=== PATIENT | female | born 1970 | race Caucasian/White ===

== ENCOUNTER 2019-08-07 10:57 | Emergency (ER) | payer OTHER, SELFPAY ==
[2019-08-07 10:58] VITALS: BP 157/93; PULSE 71; RESP 17; TEMP 36.7; O2SAT 97; BMI 32.9
--- NOTE | 2019-08-07 11:08 | ECG_ITS ---
Measurements Intervals [place] Rate: 70 P: 52 SD: 168 QRS: 55 QRSD: 80 T: 46 QT: 380 QTc: 410 SINUS RHYTHM Compared to ECG 02/27/2018 11:19:27 T-wave abnormality no longer present Electronically Signed On 08-07-2019 13:18:25 [employer]ORER [employer]ED CONCRETE by Samra Parks M.D. [email or web address]
--- NOTE | 2019-08-07 12:15 | XR_ITS ---
WS: [id number] XR chest 1V portable [id number] REASON FOR EXAM: sob FINDINGS: Comparison: Exam February 27, 2018 The heart and mediastinal interfaces are normal. The lung quinn are adequately aerated no pneumonia, pleural effusion, pulmonary edema, or pleural ef fusion. The hilum and apices are normal. No osseous abnormalities. XR/XR chest 1V portable [id number] IMPRESSION: Negative chest for active pathology.
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
--- NOTE | 2019-08-07 12:22 | W.ED.GENADLT ---
HPI - General Adult General: Chief complaint: Shortness of Breath/Dyspnea Stated complaint: left arm pain/short of breath Time Seen by Provider: 08/07/19 12:15 History of Present Illness: HPI narrative: Patient complains about left arm pain started today he did wake up with a migraine took her migraine medication headache is gone now said that her left hand seems swelled said it hurt for for several hours she put her arm behind her back and that seemed to make her arm pain go she denies any injury she does a lot of typing down at the [facility] denies any shortness of breath or chest pain presently Gosia history of cardiac disease MD complaint: Left arm pain Onset (ago): hour(s) Location: upper extremity Radiation: non-radiation Severity: mild Severity scale (1-10): 5 Quality: aching Pain Consistency: now resolved Relieving factors: movement and rest Exacerbating factors: movement Associated symptoms: Reports no associated symptoms; Deny chest pain, dyspnea, headache(s), nausea, rash or vomiting Review of Systems Narrative: Left arm pain started this morning did get relief when moving her arm behind the back. 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 Const: Denies: fever, chills or body aches Eyes: Denies: change in vision or blurry vision ENMT: Denies: throat pain or nasal congestion Card: Denies: chest pain or shortness of breath on exertion Resp: Denies: shortness of breath, productive cough or non-productive cough GI: Denies: abdominal pain, nausea or vomiting Musc: Denies: extremity pain Skin/Breast: Denies: rash Neuro: Denies: headache Psych: Denies: anxiety or depression Andrew/Lymph: Denies: easy bruising PFS ED PFSH: Social History Smoking and tobacco status: former smoker Physical Exam Const: COMMON NORMALS: no apparent distress, average body habitus and oriented x3 HENMT: COMMON NORMALS: normocephalic HEAD & SCALP: normal to inspection and normocephalic FACE & SINUS: normal facial exam Eye: COMMON NORMALS: conjunctivae normal GENERAL EYE: normal appearance of both eyes CONJUNCTIVA: Yes conjunctivae normal Neck/C-Spine: COMMON NORMALS: no JVD Chest: COMMONS NORMALS: inspection of chest normal Resp: COMMON NORMALS: normal respiratory effort and clear to auscultation bilaterally AUSCULTATION: clear to auscultation bilaterally Cardio: COMMON NORMALS: no JVD, regular rate and regular rhythm RATE: regular rate RHYTHM: regular rhythm GI: COMMON NORMALS: normal to inspection, nondistended, normoactive bowel sounds Extremity: COMMON NORMALS: normal to inspection and full ROM OTHER: I did not not notice any extremity swelling patient has good range of motion the arm no increased pain with movement good pulses good cap refill Neuro: COMMON NORMALS: oriented x3 Course Vital Signs: Vital signs: Vital Signs Temperature 98.0 F 08/07/19 10:58 Pulse Rate 71 08/07/19 10:58 Respiratory Rate 17 08/07/19 10:58 Blood Pressure 157/93 08/07/19 10:58 Pulse Oximetry 97 08/07/19 10:58 [facility] - General Adult EKG Data^: EKG 1: EKG interpretation date: 08/07/19 EKG interpretation time: 12:00 Interpretation: NSR, bpm 70bpm, pr 168ms, qrs 80ms Discharge Plan Discharge Prescriptions: No Action gabapentin 100 mg capsule 100 mg PO TID Qty: 90 RF: 1 topiramate 100 mg tablet 100 mg PO BID Qty: 60 RF: 1 sumatriptan succinate [Imitrex] 100 mg tablet 100 mg PO ONCE PRN (Reason: migraine headache) Qty: 9 RF: 1 diclofenac sodium 75 mg tablet,delayed release (DR/EC) 75 mg PO BID Qty: 60 RF: 0 Coding Level of Care Code ED Automobile Radio Repairer for Chg Fwd Exam Comprehensive
[2019-08-07 12:25] LABS: Troponin(5th) Baseline 6 ng/mL (0-10)
[2019-08-07 12:33] VITALS: O2SAT 99
[2019-08-07 12:40] LABS: Basophils # 0.1 10^3/uL (0.0-0.1); Basophils % 0.6 %; Eosinophils % 0.2 %; Hematocrit 42.9 % (37.0-47.0); Lymphocytes # 1.8 10^3/uL (0.8-4.8); Lymphocytes % 21.2 %; Mean Corpuscular HGB Conc 32.6 g/dL (30.0-36.0); Mean Corpuscular Hemoglobin 30.1 pg (28.0-34.0); Mean Corpuscular Volume 92.3 fL (81-99); Mean Platelet Volume 9.5 fL (7.4-10.4); Monocytes # 0.4 10^3/uL (0.2-0.9); Monocytes % 5.2 %; Neutrophils # 6.1 10^3/uL (1.8-7.7); Neutrophils % 72.7 %; Nucleated Red Blood Cells % 0 %; Platelet Count 330 10^3/cmm (130-400); Red Blood Count 4.65 10^6/uL (4.1-5.3); White Blood Count 8.4 10^3/uL (4.0-10.0)
[2019-08-07 12:54] LABS: Alanine Aminotransferase 62 U/L (0-33); Albumin Level 4.8 g/dL (3.5-5.2); Alkaline Phosphatase 69 IU/L (35-105); Anion Gap 20.4 (5-19); Aspartate Amino Transferase 31 U/L (0-32); Blood Urea Nitrogen 24 mg/dL (6-20); Calcium 10.7 mg/dL (8.5-10.5); Carbon Dioxide 19 mmol/L (22-29); Chloride 104 mmol/L (98-107); Globulin 2.5 g/dL (1.3-4.6); Glomerular Filtration Rate 44.1 mL/min (90-130); Glucose 101 mg/dL (65-115); Potassium 4.36; Sodium 139 mmol/L (136-145); Total Bilirubin 0.3 mg/dL (0.15-1.2); Total Protein 7.3 g/dL (6.6-8.7)
--- NOTE | 2019-08-07 13:08 | ECG_ITS ---
Measurements Intervals [place] Rate: 64 P: 52 CT: 165 QRS: 31 QRSD: 83 T: 30 QT: 400 QTc: 414 SINUS RHYTHM Compared to ECG 08/07/2019 11:05:13 No significant changes Electronically Signed On 08-07-2019 16:39:59 CREPE SOLE SCOURER by Samra Parks M.D. [id number]
[2019-08-07 13:39] VITALS: BP 133/83; PULSE 67; RESP 17; O2SAT 98
== END 2019-08-07 13:40 | disposition home or self-care (01) ==
PROVIDERS: Family Medicine; Emergency Provider Nurse Practitioner Family; Family Provider Family Medicine; PCP Family Medicine
DX: R06.02 Shortness of breath (principal); M79.622 Pain in left upper arm; R11.0 Nausea; Z87.891 Personal history of nicotine dependence
CPT/HCPCS: 71045; 72050; 80053; 84484; 85025; 93005; 99283; 99284

== ENCOUNTER → 2020-01-08 11:46 | Outpatient (BNVA) | payer OTHER, SELFPAY | PROVIDERS: Family Provider Family Medicine; PCP Family Medicine; Visit Provider Specialist | DX: G43.711 Chronic migraine without aura, intractable, with status migrainosus (principal); M46.1 Sacroiliitis, not elsewhere classified; H93.19 Tinnitus, unspecified ear | CPT/HCPCS: 99203 ==

== ENCOUNTER 2020-03-26 04:39 | Emergency (ER) | payer OTHER, SELFPAY ==
[2020-03-26 04:40] VITALS: BP 146/90; PULSE 76; RESP 16; O2SAT 96; BMI 29.2
--- NOTE | 2020-03-26 04:44 | USR_ITS ---
PROCEDURE INFORMATION: Exam: US Abdomen, Limited; Right Upper Quadrant Exam date and time: 03/26/2020 4:57 AM Age: 49 years old Clinical indication: Abdominal pain; Acute; Patient HX: Sudden onset ruq pain at 3am this morning; Additional info: Abd pain TECHNIQUE: Imaging protocol: US abdomen. Real time ultrasound with image documentation. Limited exam focused on the right upper quadrant. COMPARISON: CT abdomen pelvis w con* [id number] 02/27/2018 8:20 AM FINDINGS: Liver: Hepatic parenchymal echotexture is normal. No visible mass. Gallbladder: The gallbladder contains shadowing stones and sludge. The wall is thin. The lumen is incompletely distended. There is no pericholecystic fluid. Sonographic Beth sign is negative. Common bile duct: The common bile duct is nondilated measuring 5 mm. Pancreas: The visible portion of the pancreas is unremarkable. Right kidney: The right kidney is unremarkable. Aorta: The visible portion of the abdominal aorta is unremarkable. Portal venous: The portal vein is patent. Inferior vena cava: The upper IVC is unremarkable. US/US gall bladder [id number] IMPRESSION: Cholelithiasis without other evidence of cholecystitis.
--- NOTE | 2020-03-26 04:46 | W.ED.ABDPA2 ---
Documented by User: Cesar Rogers MD 03/26/20 04:52 HPI - Abdominal Pain General: Chief Complaint: Abdominal Pain Stated Complaint: ABD PAIN Time Seen by Provider: 03/26/20 04:40 Source: patient and EMS Mode of arrival: EMS Limitations: no limitations History of Present Illness: HPI narrative: 49-year-old female states she woke up couple hours ago with abdominal pain in the right upper quadrant. States it radiated to her back as well. States she has had some nausea with no vomiting. Patient denies any worsening or improving factors. She states her pain has improved greatly and is now a 2 out of 10. MD elicited complaint: abdominal pain Onset (ago): hour(s) Pain Consistency: constant Location: RUQ Severity: mild Quality: stabbing Radiation: back Exacerbating factors: nothing Relieving factors: nothing Associated Symptoms: Denies chills, dysuria and fever(s) Review of Systems Const: Denies: fever(s), chills, body aches or change in appetite Eyes: Denies: blurry vision or eye discomfort ENMT: Denies: throat pain or dental pain Card: Denies: chest pain Resp: Denies: dyspnea GI: Reports: abdominal pain : Denies: dysuria Musc: Denies: neck pain or back pain Skin/Breast: Denies: rash Neuro: Denies: headache(s) Psych: Denies: depression Andrew/Lymph: Denies: easy bruising All/Imm: Denies: urticaria PFSH ED PFSH: Family History Other Cancer Diabetes Social History Smoking and tobacco status: former smoker Physical Exam Const: COMMON NORMALS: no acute distress, patient oriented x3 and healthy appearing HENMT: COMMON NORMALS: normocephalic and atraumatic HEAD & SCALP: normocephalic and atraumatic Eye: COMMON NORMALS: Equal, round and reactive pupils present and EOMs intact bilaterally PUPIL: Yes Equal, round and reactive pupils present Neck/C-Spine: COMMON NORMALS: full ROM and supple Chest: COMMONS NORMALS: normal inspection of the chest and normal palpation of entire chest wall Resp: COMMON NORMALS: normal respiratory effort, No retractions, No use of accessory muscles and clear to auscultation bilaterally AUSCULTATION: clear to auscultation bilaterally Cardio: COMMON NORMALS: regular rate, regular rhythm and No murmurs present (Cardio) RATE: regular rate RHYTHM: regular rhythm GI: COMMON NORMALS: Normal to inspection, nondistended, normoactive bowel sounds present, Soft to palpation and no masses PALPATION: Yes Soft to palpation OTHER: slight ruq tenderness Extremity: COMMON NORMALS: normal to inspection and full ROM Neuro: COMMON NORMALS: patient oriented x3, moves all extremities and no focal motor deficits Psych: COMMON NORMALS: mental status grossly normal, Normal thought process present and cooperative THOUGHT PROCESS: Normal thought process present Skin: COMMON NORMALS: no rashes or lesions noted and no wounds GENERAL SKIN EXAM: no rashes or lesions noted Course Vital Signs: Vital signs: Vital Signs Pulse Rate 76 03/26/20 04:40 Respiratory Rate 16 03/26/20 04:40 Blood Pressure 146/90 03/26/20 04:40 Pulse Oximetry 96 03/26/20 04:40 MDM - Abdominal Pain Lab Data: Labs: Lab Results 03/26/20 03/26/20 03/26/20 Range/Units 04:45 04:45 04:55 WBC 6.7 (4.0-10.0) 10^3/ uL RBC 4.44 (4.1-5.3) 10^6/u L Hgb 13.8 (11.5-15.3) g/dL Hct 42.4 (37.0-47.0) % MCV 95.5 (81-99) fL MCH 31.1 (28.0-34.0) pg MCHC 32.5 (30.0-36.0) g/dL RDW 12.4 (12.1-15.1) % Plt Count 372 (130-400) 10^3/c mm MPV 9.9 (7.4-10.4) fL Neut % (Auto) 39.8 % Lymph % (Auto) 50.8 % Sterling % (Auto) 7.4 % Eos % (Auto) 1.0 % Baso % (Auto) 0.7 % Neut # (Auto) 2.67 (1.8-7.7) 10^3/u L Lymph # (Auto) 3.4 (0.8-4.8) 10^3/u L Sterling # (Auto) 0.5 (0.2-0.9) 10^3/u L Eos # (Auto) 0.1 (0.0-0.8) 10^3/u L Baso # (Auto) 0.1 (0.0-0.1) 10^3/u L Nucleated RBC % (a uto) 0 % Nucleated RBCs # 0.0 /100WBC Sodium 141 (136-145) mmol/L Potassium 3.6 (3.5-5.1) mmol/L Chloride 104 (98-107) mmol/L Carbon Dioxide 27 (22-29) mmol/L Anion Gap 13.6 (5-19) BUN 15 (6-20) mg/dL Creatinine 0.9 (0.5-0.9) mg/dL GFR Calculation 67.1 L (90-130) mL/min Glucose 99 (65-115) mg/dL Calculated Osmolal ity 293 (285-295) mOsm/k g Calcium 10.0 (8.5-10.5) mg/dL Total Bilirubin 0.2 (0.15-1.2) mg/dL AST 113 H (0-32) U/L ALT 132 H (0-33) U/L Alkaline Phosphata se 77 (35-105) IU/L Total Protein 6.7 (6.6-8.7) g/dL Albumin 4.3 (3.5-5.2) g/dL Globulin 2.4 (1.3-4.6) g/dL Lipase 89 H (13-60) U/L Urine Color Yellow (Yellow) Urine Appearance Clear (CLEAR) Urine pH 5.0 (5-7) Ur Specific Gravit y 1.025 (1.005-1.030) Urine Protein Neg (Negative) Urine Glucose (UA) Norm (Normal) Urine Ketones Negative (Negative) Urine Blood Neg (Negative) Urine Nitrate Negative (Negative) Urine Bilirubin Neg (Negative) Urine Urobilinogen Norm (Negative) mg/dL Ur Leukocyte Renetta ase Negative (Negative) Discharge Plan Discharge Patient Disposition: Home Clinical Impression: Cholelithiases Condition: Stable Prescriptions: New hydrocodone-acetaminophen 5-325 mg tablet 1 tab PO Q6H PRN (Reason: pain) Qty: 20 RF: 0 Zofran 4 mg tablet 4 mg PO Q6H PRN (Reason: nausea and vomiting) Qty: 20 RF: 0 No Action venlafaxine 150 mg capsule,extended release 24hr 150 mg PO DAILY Qty: 30 RF: 2 venlafaxine 75 mg tablet 75 mg PO DAILY Qty: 7 RF: 0 topiramate 100 mg tablet 100 mg PO BID Qty: 60 RF: 1 diclofenac sodium 75 mg tablet,delayed release (DR/EC) 75 mg PO BID Qty: 60 RF: 0 sumatriptan succinate 100 mg tablet See Rx Instructions .ROUTE .COMPLEX Qty: 9 RF: 1 gabapentin 100 mg capsule 100 mg PO BID Qty: 42 RF: 0 Discharge Orders: Discharge Order (Routine); Ordered 03/26/20 Ordered By: Charles Yates Discharge Diet: As Directed Discharge Activity: Increase activity as tolerated Activity Restrictions/Additional Instructions: Case management will call with a referral to surgery to evaluate your gallbladder Coding Level of Care Code ED Senior Manager M[employer]ers [employer] Acquisitions for Chg Fwd Exam Comprehensive Documented by User: Charles Yates DO 03/26/20 07:09 HPI - Abdominal Pain General: Chief Complaint: Abdominal Pain Stated Complaint: ABD PAIN Time Seen by Provider: 03/26/20 04:40 PFSH ED PFSH: Family History Other Cancer Diabetes Social History Smoking and tobacco status: former smoker Course Vital Signs: Vital signs: Vital Signs Pulse Rate 76 03/26/20 04:40 Respiratory Rate 16 03/26/20 04:40 Blood Pressure 146/90 03/26/20 04:40 Pulse Oximetry 96 03/26/20 04:40 MDM - Abdominal Pain MDM Narrative: Medical decision making narrative: Care assumed at change of shift. Common bile duct is normal she does have some cholelithiasis without evidence of cholecystitis. She is feeling somewhat better. We had a long conversation about diet. Clear liquid diet for 48 hours then bland diet after that. She has been using Tums quite a bit leading up to this but is never had anything so intense suspected some of those may have been gallbladder attacks. We will go ahead and discharge her home she is feeling well enough to go and would prefer to complete this as an outpatient. We will discharge her with hydrocodone and Zofran. Return if worsens. Case management to make appointment for outpatient evaluation with general surgery for cholelithiasis. Lab Data: Labs: Lab Results 03/26/20 03/26/20 03/26/20 Range/Units 04:45 04:45 04:55 WBC 6.7 (4.0-10.0) 10^3/ uL RBC 4.44 (4.1-5.3) 10^6/u L Hgb 13.8 (11.5-15.3) g/dL Hct 42.4 (37.0-47.0) % MCV 95.5 (81-99) fL MCH 31.1 (28.0-34.0) pg MCHC 32.5 (30.0-36.0) g/dL RDW 12.4 (12.1-15.1) % Plt Count 372 (130-400) 10^3/c mm MPV 9.9 (7.4-10.4) fL Neut % (Auto) 39.8 % Lymph % (Auto) 50.8 % Sterling % (Auto) 7.4 % Eos % (Auto) 1.0 % Baso % (Auto) 0.7 % Neut # (Auto) 2.67 (1.8-7.7) 10^3/u L Lymph # (Auto) 3.4 (0.8-4.8) 10^3/u L Sterling # (Auto) 0.5 (0.2-0.9) 10^3/u L Eos # (Auto) 0.1 (0.0-0.8) 10^3/u L Baso # (Auto) 0.1 (0.0-0.1) 10^3/u L Nucleated RBC % (a uto) 0 % Nucleated RBCs # 0.0 /100WBC Sodium 141 (136-145) mmol/L Potassium 3.6 (3.5-5.1) mmol/L Chloride 104 (98-107) mmol/L Carbon Dioxide 27 (22-29) mmol/L Anion Gap 13.6 (5-19) BUN 15 (6-20) mg/dL Creatinine 0.9 (0.5-0.9) mg/dL GFR Calculation 67.1 L (90-130) mL/min Glucose 99 (65-115) mg/dL Calculated Osmolal ity 293 (285-295) mOsm/k g Calcium 10.0 (8.5-10.5) mg/dL Total Bilirubin 0.2 (0.15-1.2) mg/dL AST 113 H (0-32) U/L ALT 132 H (0-33) U/L Alkaline Phosphata se 77 (35-105) IU/L Total Protein 6.7 (6.6-8.7) g/dL Albumin 4.3 (3.5-5.2) g/dL Globulin 2.4 (1.3-4.6) g/dL Lipase 89 H (13-60) U/L Urine Color Yellow (Yellow) Urine Appearance Clear (CLEAR) Urine pH 5.0 (5-7) Ur Specific Gravit y 1.025 (1.005-1.030) Urine Protein Neg (Negative) Urine Glucose (UA) Norm (Normal) Urine Ketones Negative (Negative) Urine Blood Neg (Negative) Urine Nitrate Negative (Negative) Urine Bilirubin Neg (Negative) Urine Urobilinogen Norm (Negative) mg/dL Ur Leukocyte Renetta ase Negative (Negative) Discharge Plan Discharge Patient Disposition: Home Clinical Impression: Cholelithiases Condition: Stable Prescriptions: New hydrocodone-acetaminophen 5-325 mg tablet 1 tab PO Q6H PRN (Reason: pain) Qty: 20 RF: 0 Zofran 4 mg tablet 4 mg PO Q6H PRN (Reason: nausea and vomiting) Qty: 20 RF: 0 No Action venlafaxine 150 mg capsule,extended release 24hr 150 mg PO DAILY Qty: 30 RF: 2 venlafaxine 75 mg tablet 75 mg PO DAILY Qty: 7 RF: 0 topiramate 100 mg tablet 100 mg PO BID Qty: 60 RF: 1 diclofenac sodium 75 mg tablet,delayed release (DR/EC) 75 mg PO BID Qty: 60 RF: 0 sumatriptan succinate 100 mg tablet See Rx Instructions .ROUTE .COMPLEX Qty: 9 RF: 1 gabapentin 100 mg capsule 100 mg PO BID Qty: 42 RF: 0 Discharge Orders: Discharge Order (Routine); Ordered 03/26/20 Ordered By: Charles Yates Discharge Diet: As Directed Discharge Activity: Increase activity as tolerated Activity Restrictions/Additional Instructions: Case management will call with a referral to surgery to evaluate your gallbladder Coding Level of Care Code ED Senior Manager [employer] Acquisitions for Chg Fwd Exam Comprehensive
[2020-03-26 05:02] LABS: Basophils # 0.1 10^3/uL (0.0-0.1); Basophils % 0.7 %; Eosinophils # 0.1 10^3/uL (0.0-0.8); Hematocrit 42.4 % (37.0-47.0); Hemoglobin 13.8 g/dL (11.5-15.3); Lymphocytes # 3.4 10^3/uL (0.8-4.8); Lymphocytes % 50.8 %; Mean Corpuscular HGB Conc 32.5 g/dL (30.0-36.0); Mean Corpuscular Hemoglobin 31.1 pg (28.0-34.0); Mean Corpuscular Volume 95.5 fL (81-99); Mean Platelet Volume 9.9 fL (7.4-10.4); Monocytes # 0.5 10^3/uL (0.2-0.9); Monocytes % 7.4 %; Neutrophils # 2.67 10^3/uL (1.8-7.7); Neutrophils % 39.8 %; Nucleated Red Blood Cells % 0 %; Platelet Count 372 10^3/cmm (130-400); Red Blood Count 4.44 10^6/uL (4.1-5.3); Red Cell Distribution Width 12.4 % (12.1-15.1); White Blood Count 6.7 10^3/uL (4.0-10.0)
--- NOTE | 2020-03-26 05:04 | ECG_ITS ---
[facility] Test Date: 2020-03-26 Pat Name: Ana Laura Kitchen Department: Room: Gender: Female Housing Management Representative: : 1970 Requested By: Cesar Rogers Order Number: [id number] Vin MD: Samra Parks M.D. Measurements Intervals [place] Rate: 79 P: 61 [place]: 162 QRS: 69 QRSD: 80 T: 62 QT: 384 QTc: 440 Interpretive Statements SINUS RHYTHM Compared to ECG 08/07/2019 13:34:02 No significant changes Electronically Signed On 03-26-2020 12:51:54 CDT by Samra Parks M.D. [id number]
[2020-03-26 05:30] LABS: Alanine Aminotransferase 132 U/L (0-33); Albumin Level 4.3 g/dL (3.5-5.2); Alkaline Phosphatase 77 IU/L (35-105); Anion Gap 13.6 (5-19); Aspartate Amino Transferase 113 U/L (0-32); Blood Urea Nitrogen 15 mg/dL (6-20); Carbon Dioxide 27 mmol/L (22-29); Chloride 104 mmol/L (98-107); Globulin 2.4 g/dL (1.3-4.6); Glomerular Filtration Rate 67.1 mL/min (90-130); Glucose 99 mg/dL (65-115); Lipase 89 U/L (13-60); Osmolality Calculated 293 mOsm/kg (285-295); Potassium 3.6 mmol/L (3.5-5.1); Sodium 141 mmol/L (136-145); Total Bilirubin 0.2 mg/dL (0.15-1.2); Total Protein 6.7 g/dL (6.6-8.7)
[2020-03-26 06:04] LABS: Add Urine Microscopic? NO
[2020-03-26 06:15] LABS: Urine Appearance Clear (CLEAR); Urine Color Yellow (Yellow)
[2020-03-26 06:16] LABS: Bilirubin Urine Neg (Negative); Blood Urine Neg (Negative); Glucose Urine UA Norm (Normal); Ketones Urine Negative (Negative); Leukocyte Esterase Urine Negative (Negative); Nitrate Urine Negative (Negative); Protein Urine Neg (Negative); Specific Gravity, Urine 1.025 (1.005-1.030); Urobilinogen Urine Norm (Negative)
[2020-03-26 07:12] VITALS: BP 114/62; PULSE 77; RESP 16; O2SAT 96
--- NOTE | 2020-03-26 08:46 | DCPLANNER ---
manager adult had message to schedule a follow up appointment for patient with general surgery. manager adult called [facility], spoke with Moni, gave clinic patients information. manager adult was told that patients information would be printed and reviewed. Clinic will call patient with appointment information.
--- NOTE | 2020-03-27 11:37 | DCPLANNER ---
Patient has a follow up appointment scheduled for , March 27, 2020 at 1:[address] Kevin. Clinic will call patient with appointment information.
--- NOTE | 2020-03-28 17:18 | DCPLANNER ---
schedule planning manager had message to schedule a follow up appointment scheduled for 03.27.20 with surg spec - patient did attend appointment.
== END 2020-03-26 07:12 | disposition home or self-care (01) ==
PROVIDERS: Emergency Medicine; Emergency Provider Family Medicine; Family Provider Family Medicine; PCP Family Medicine
DX: K80.20 Calculus of gallbladder without cholecystitis without obstruction (principal); Z87.891 Personal history of nicotine dependence
CPT/HCPCS: 12345; 76705; 80053; 81003; 83690; 85025; 93005; 99283

== ENCOUNTER → 2020-04-17 11:56 | Outpatient (BNVA) | payer OTHER, SELFPAY | PROVIDERS: Family Provider Family Medicine; PCP Family Medicine; Visit Provider Surgery | DX: Z11.59 Encounter for screening for other viral diseases (principal); K43.9 Ventral hernia without obstruction or gangrene; K80.20 Calculus of gallbladder without cholecystitis without obstruction | CPT/HCPCS: 87635 ==

== ENCOUNTER 2020-04-21 07:18 | Day surgery (SDC) | payer OTHER, SELFPAY ==
[2020-04-18 14:31] VITALS: BMI 32.0
[2020-04-21] VITALS (12 sets, daily range): BP systolic 86–149; BP diastolic 56–87; PULSE 64–82; RESP 12–20; TEMP 36.2–37.1; O2SAT 94–100
--- NOTE | 2020-04-21 07:48 | ANES.PREANE2 ---
Pre-Anesthetic Assessment Pre-Anesthetic Assessment: Height/Weight: Height 1.57 m Weight 79.379 kg Temp Pulse Resp BP Pulse Ox 98.7 F 72 18 123/78 98 04/21/20 07:36 04/21/20 07:36 04/21/20 07:36 04/21/20 07:36 04/21/20 07:36 Preop Diagnosis: Symptomatic cholelithiasis and supraumbilical hernia Proposed Procedure: Operation Date: 04/21/20 08:40 Proposed Procedures p Laparoscopic Cholecystectomy 78375 K80.20(Not Applicable) - Scott Kevin MD s Open supraumbilical repair w/ poss mesh 77111 K43.9(Not Applicable) - Scott Kevin MD Familial anesthetic complications: None Was Beta Yesenia taken within 24 hours: N/A Last intake: Intake Last Liquid Date 04/20/20 Last Liquid Time 23:00 Last Solid Date 04/20/20 Last Solid Time 20:00 Social: Social History: No alcohol and No tobacco Exam: Pre-Anes Outpt Exam: alert, oriented x 3, clear to auscultation bilaterally and regular rate & rhythm Airway: Cervical ROM: WNL MP: 2 Dentition: Other (missing teeth (has retainer)) Metabolic: Metabolic: Hyperlipidemia and Thyroid Musc/skel: Musc/skel: Lower Back Pain Anesthetic Plan: ASA status: 2 Anesthesia: General Risk of > 500 ml blood loss (7ml/kg in children): No PFSH Anesthesia PFSH: Family History Other Cancer Diabetes Social History Smoking and tobacco status: former smoker Data Anesthesia Cardiac Studies: No Data to Display
[2020-04-21] MEDS: sodium chloride 0.9% 1,000 ML 30 ML IV (07:56)
--- NOTE | 2020-04-21 09:07 | W.PM.OPSUD ---
Surgery/Procedure H&P Update DATE OF PROCEDURE: April 21, 2020 DATE H&P PERFORMED: 03/27/20 H&P UPDATE INFORMATION: I have reviewed H&P completed within last 30 days, I have examined patient prior to procedure and No changes to prior documentation PREOP DIAGNOSIS: Symptomatic cholelithiasis and supraumbilical hernia PRIMARY INDICATION FOR PROCEDURE: The same PLANNED PROCEDURE: Operation Date: 04/21/20 08:40 Proposed Procedures p Laparoscopic Cholecystectomy 80244 K80.20(Not Applicable) - Scott Kevin MD s Open supraumbilical repair w/ poss mesh 16831 K43.9(Not Applicable) - Scott Kevin MD
[2020-04-21] MEDS: lidocaine 2% INJ 20 mL INJECTION (11:01)
--- NOTE | 2020-04-21 11:13 | P.OP_ITS ---
Operative Report Date of procedure: April 21, 2020 Pre-op Diagnosis: Symptomatic cholelithiasis and supraumbilical hernia Post-op diagnosis: same Post-op Findings: Chronic calculus cholecystitis with acute component and incarcerated supraumbilical hernia Fatty liver Procedure Done: Laparoscopic cholecystectomy and laparoscopic supraumbilical hernia repair primarily without mesh Implants: Large piece of Surgicel at the gallbladder fossa Specimens removed/disposition: Gallbladder and contents Surgeon: Scott Kevin Construction Rigger: Surgical rick Aiken Circulating nurse Chante Anesthesia: General (process improvement consultant Justyn) Estimated blood loss (mL): 25 IV fluids (mL): 800 Condition: stable Disposition: same day Brief History: This is a pleasant 49 years old female patient referred to my practice with symptomatic cholelithiasis and supraumbilical hernia. Plan of care; After thorough history physical examination and reviewing the chart ,I counseled the patient for laparoscopic cholecystectomy possible open and possible open supraumbilical hernia repair., indications risks including but not limited injury to the common bile duct and other viscera.benefits and alternatives all discussed with the patient, and she did agree to proceed. All questions have been answered and all concerns have been addressed to patient's satisfaction. Rationale was carefully and clearly discussed with the patient.Appropriate informed consent have been reviewed and signed. Procedure: Patient was identified in the holding area and taken back to the operative suite, placed in supine position intubated by anesthesia . Time-out was done verifying the patient's name/date of /planned procedure and destination after the procedure, all were in agreement. SCDs confirmed to be functioning, preoperative antibiotics administered per protocol, and beta joanne protocol was confirmed. Patient was appropriately secured to the table, footboard was applied to the OR table, before prep and drape anesthesia was asked to tilt the table back and forth to make sure that the patient is appropriately secured and she was. Prep and drape of the abdomen was done under the usual sterile technique, followed by that infra umbilical skin incision going through previous scar,skin incision was done by a 15 blade knife, and stay sutures were applied to the fascia and Aviles trocar technique was used to enter the abdominal without injuring any abdominal viscera, started by low flow gas insufflation followed by a high flow, started with a 10 mm laparoscope and under direct vision there was no evidence of any injuries, the scope then switched to a 30? ,10 millimeter scope and under direct visualization 5 millimeter trocar was inserted in the epigastric region followed by two 5 mm trocars were inserted in the right upper quadrant that was done after injection of local lidocaine 2% at all incision sites. Gallbladder showed acute on top of chronic calculus cholecystitis with edema &with adhesions noticed that the liver is fatty and enlarged. Patient was then positioned in the head up and tilted to the left Ratcheted forceps were introduced into the lateral most 5mm port and was applied unto the fundus of the gallbladder cephalad and using Bullet forceps the infundibulum of the gallbladder was retracted laterally. Using [place] forceps then L-hook cautery to dissect the peritoneum overlying the Calot's triangle whihc was then opened medially and laterally until the cystic duct and the cystic artery were skeletonized. Dissection was carried along the body of the gallbladder and after ensuring critical view of safety was identfied. Cystic duct and cystic artery where seen connected to the gallbladder. Clips were applied on the cystic duct towards the common bile duct 1 towards the gallbladder then divided is in sharp scissors, 2 clips were then applied onto the cystic artery and 1 towards the gallbladder and divided by sharp scissors. An additional traversing vessel was clipped and divided as well towards the mid part of the body of the gallbladder and fossa. Dissection was then carried along of the gallbladder from the gallbladder fossa using cautery as well as sharp dissection with heat energy. The gallbladder then was dissected out from the gallbladder fossa totally , cholecystectomy was then achieved and was placed in an Endo Catch bag and then retrieved from the Aviles trocar site under direct visualization using a 5 mm 30? scope through the epigastric trocar, specimen was then passed to the circulating nurse to go for permanent pathology,irrigation and hemostasis was done to the gallbladder fossa after hemostasis was secured, final survey laparoscopy was done that showed no injuries, large piece of Surgicel was placed at the gallbladder fossa to secure hemostasis. Suction irrigation was obtained. Attention now was deviated towards the supraumbilical hernial component were further dissection using cauterization was done under direct visualization and a small defect less than 1 inch in diameter was identified and #1 PDS arleyq-le-qgrzu was placed using fascial closure device using a small stab incision at the supraumbilical component. The infraumbilical fascial defect was then closed using interrupted PDS sutures using a fascial closure device ;Shankar Dudley under direct visualization. Final survey was done and showed no injuries Gas was allowed to deflate,Trocars were then taken out under direct vision there was no evidence of bleeding Specimen was passed to the circulating nurse for permanent pathology. No drains were placed and the Infraumbilical incision as well as all other incisions sites were closed by by 4-0 Monocryl to approximate the skin edges of the supraumbilical incision, dressing was applied in the form of surgical gl ue and the patient patient got extubated and was taken to recovery area in a stable condition. Count of sponges,needles and instruments were completed at the end of the procedure I was present for the whole entire procedure.
--- NOTE | 2020-04-21 12:01 | SUR.PHASEI ---
1147 PT AWAKE ALERT TAKING SIPS OF SODA, PT TO OPS HANDOFF AT BEDSIDE, PT C/O OF SLIGHT PAIN TO [place] AREA, PT OK WITH SIPS OF SODA AND PAIN MED PO IN PACU.
[2020-04-21] MEDS: HYDROcodone-acetaminophen 5-325 mg Tablet 1 TAB PO (12:07)
[2020-04-21] MEDS: ondansetron 2 mg/ML SDV 2 mL 4 MG IVP (13:11)
[2020-04-21] MEDS: sodium chloride 0.9% 500 ML 999 ML IV (13:12)
--- NOTE | 2020-04-21 13:18 | SUR.PHASEII ---
12:01 pt medicated for umbilical pain.
--- NOTE | 2020-04-21 13:20 | SUR.PHASEII ---
13:09 Pt medicated for nausea.Pt with low BP when sitting up 500ml fluid bolus infusing.
--- NOTE | 2020-04-21 14:14 | ANE.PACU2 ---
Inpatient post-anesthesia follow up: Airway intact: Yes Vital signs: Temperature 97.2 F Pulse Rate 78 Respiratory Rate 18 Blood Pressure 129/79 Pulse Oximetry 97 Oxygen Delivery Me thod Room Air Oxygen Flow Rate 8 Fraction of Inspir ed Oxygen Hydration adequate: Yes Nausea and vomiting: No Pain level: 1 Mental status: Baseline
== END 2020-04-21 14:04 | disposition home or self-care (01) ==
PROVIDERS: PCP Nurse Practitioner Family; Visit Provider Surgery
PROC: 0FT44ZZ Resection of Gallbladder, Percutaneous Endoscopic Approach (ICD-10-PCS; CPT 47562; principal; 2020-04-21 09:40)
PROC: 0WQF4ZZ Repair Abdominal Wall, Percutaneous Endoscopic Approach (ICD-10-PCS; CPT 47562; 2020-04-21 09:40)
DX: K80.10 Calculus of gallbladder with chronic cholecystitis without obstruction (principal); K43.9 Ventral hernia without obstruction or gangrene; K76.0 Fatty (change of) liver, not elsewhere classified; E78.5 Hyperlipidemia, unspecified; Z87.891 Personal history of nicotine dependence
CPT/HCPCS: 47562; 49585; 12345; 88304; 96374; J0131; J0690; J1100; J2370; J2405; J2704; J2710; J3010; J3490; J7030; J7040

== ENCOUNTER → 2020-09-19 11:34 | Outpatient (BNVA) | payer OTHER, SELFPAY | PROVIDERS: PCP Family Medicine Adult Medicine; Visit Provider Family Medicine Adult Medicine | DX: G43.711 Chronic migraine without aura, intractable, with status migrainosus (principal); E66.9 Obesity, unspecified; E78.5 Hyperlipidemia, unspecified; R94.4 Abnormal results of kidney function studies; R74.8 Abnormal levels of other serum enzymes; Z83.3 Family history of diabetes mellitus; M46.1 Sacroiliitis, not elsewhere classified; G43.909 Migraine, unspecified, not intractable, without status migrainosus; Z68.34 Body mass index [BMI] 34.0-34.9, adult | CPT/HCPCS: 80053; 80061; 83036; 84443; 85025 ==

== ENCOUNTER 2021-02-25 13:32 | Outpatient (CLI) | payer OTHER, SELFPAY ==
--- NOTE | 2021-02-25 15:00 | CT_ITS ---
WS: [id number] CT scan of the abdomen and pelvis with IV contrast. Additional two-dimensional coronal and sagittal r econstruction was performed. 02/25/2021 Clinical Data: R19.00 - Intra-abdominal and pelvic swelling, mass and carlito... Comparison: CT abdomen and pelvis, 02/27/2018. DLP: 1138.[address] scans at [facility] use at least one of these dose optimization techniques: automated e xposure control; mA and/or kV adjustment per patient size (includes targeted exams where dose is matc hed to clinical indication); or iterative reconstruction. Findings: The lower lungs show no nodules, masses or effusions. The liver, spleen, adrenal glands and pancreas are normal. There are clips in the gallbladder fossa f rom a cholecystectomy. The kidneys show equal bilateral contrast excretion with no cyst or masses. There are small bilateral nonobstructing central renal calculi. No hydronephrosis is seen. The abdominal aorta is normal in size with minimal calcification in the wall.. No appendicitis or diverticulitis is seen. The stomach, small bowel and colon show no abnormalities. There is a small fat-containing umbilical hernia with a 2 cm orifice. No abscess, adenopathy, ascites , mass, obstruction or free air is seen. The bladder is unremarkable. The uterus is absent. No inguinal hernia is seen. The bones of the lower thorax, lumbar spine, pelvis, and hips are normal. CT/CT abdomen pelvis w con* [id number] Impression: 1. Fat-containing umbilical hernia. 2. Negative for acute intra-abdominal or pelvic abnormalities.
== END 2021-02-25 13:33 | disposition home or self-care (01) ==
PROVIDERS: PCP Physician Assistant; Visit Provider Surgery
DX: R19.00 Intra-abdominal and pelvic swelling, mass and lump, unspecified site (principal); K42.9 Umbilical hernia without obstruction or gangrene
CPT/HCPCS: 74177

== ENCOUNTER 2021-03-13 11:21 | Outpatient (CLI) | payer OTHER, SELFPAY ==
--- NOTE | 2021-03-13 11:30 | MM_ITS ---
WS: [id number] BILATERAL DIGITAL SCREENING MAMMOGRAPHY WITH CAD CLINICAL INFORMATION: SCREENING HISTORY: Screening mammogram. No current complaints. COMPARISON: TECHNIQUE: Bilateral CC and MLO views. FINDINGS: The breasts are composed of heterogeneous fibroglandular density tissue, which can limit the detectio n of small underlying mass lesions. No suspicious mass, asymmetry, calcifications, or architectural d istortion. No evidence of malignancy. MM/[place] [id number] IMPRESSION: BI-RADS: 1-Negative FOLLOW UP: 1 Year Follow-up Recommend return to annual screening mammography.
== END 2021-03-13 11:22 | disposition home or self-care (01) ==
LOC: RADSHAW 11:25
PROVIDERS: PCP Physician Assistant; Visit Provider Physician Assistant
DX: Z12.31 Encounter for screening mammogram for malignant neoplasm of breast (principal)
CPT/HCPCS: 77067

== ENCOUNTER → 2021-03-18 08:00 | Outpatient (BNVA) | payer OTHER, SELFPAY | PROVIDERS: PCP Physician Assistant; Visit Provider Specialist | DX: G43.711 Chronic migraine without aura, intractable, with status migrainosus (principal) | CPT/HCPCS: 99214 ==

== ENCOUNTER → 2021-04-09 08:34 | Outpatient (BNVA) | payer OTHER, SELFPAY | PROVIDERS: PCP Physician Assistant; Visit Provider Specialist | DX: G43.711 Chronic migraine without aura, intractable, with status migrainosus (principal); Z87.891 Personal history of nicotine dependence | CPT/HCPCS: 64615; J0585 ==

== ENCOUNTER → 2021-04-13 08:27 | Outpatient (BNVA) | payer OTHER, SELFPAY | PROVIDERS: PCP Physician Assistant; Visit Provider Surgery | DX: Z20.822 Contact with and (suspected) exposure to COVID-19 (principal) | CPT/HCPCS: 87635 ==

== ENCOUNTER 2021-04-17 06:52 | Day surgery (SDC) | payer OTHER, SELFPAY ==
[2021-04-13 14:42] VITALS: BMI 32.9
--- NOTE | 2021-04-17 06:46 | W.PM.OPSFHP ---
Same Day Surgery H&P Indication for Procedure/HPI DATE OF PROCEDURE: April 17, 2021 CHIEF COMPLAINT/INDICATIONFOR SURGICAL PROCEDURE: Screening colonoscopy PREOP DIAGNOSIS: Screening colonoscopy PLANNED PROCEDRUE: Operation Date: 04/17/21 08:15 Proposed Procedures p Colonoscopy 99375 Z12.11(Not Applicable) - Scott Kevin MD This is a pleasant 50 years old female patient presents to my practice for screening colonoscopy and also the patient has symptomatic ventral incisional hernia that will take place for surgical repair after the colonoscopy is done to make sure that the patient does not have an underlying colon pathology. ROS All systems have been reviewed negative except as per the above or per problem list. Medications/Allergies* Home Medications Medication Instructions Recorded Confirmed Type cholecalciferol (vitamin D3) 25 mcg PO DAILY 04/18/20 04/17/21 History [Vitamin D3] cyanocobalamin (vitamin B-12) 1,000 mcg PO DAILY 04/18/20 04/17/21 History magnesium 100 mg PO DAILY 04/18/20 04/17/21 History multivitamin 1 tab PO DAILY 04/18/20 04/17/21 History omega-3 fatty acids 1 cap PO DAILY 04/18/20 04/17/21 History cupjena-xkpwvzmddfrnz-bnsucuqi 250 1 tab PO Q6H PRN 10/27/20 04/17/21 History mg-250 mg-65 mg tablet Allergies/Adverse Reactions Allergy/AdvReac Type Severity Reaction Status Date / Time No Known Allergies Allergy Verified 04/17/21 07:54 Pertinent History/Comorbid Conditions* Medical History (Updated 03/13/21 @ 17:10 by Scott Kevin MD) Elevated liver enzymes Family history of diabetes mellitus Hyperlipidemia Low back pain Migraine headache Obesity (BMI 30.0-34.9) Sacroiliitis Supraumbilical hernia Symptomatic cholelithiasis Weight gain finding Surgical History (Updated 09/19/20 @ 11:01 by Abdelrahman Bray MD) H/O tubal ligation H/O: hysterectomy History of laparoscopic cholecystectomy (~04/2020) Family History (Updated 09/19/20 @ 10:14 by Joaquina Loya LPN) Diabetes CAD (coronary artery disease) Cancer Social History Smoking and tobacco status: former smoker Alcohol intake: current Alcohol intake frequency: holidays/special occasions only Marital status: Number of children: 4 Number of grandchildren: 3 Current occupational status: employed Pertinent Exam Findings alert, oriented x 3, clear to auscultation bilaterally, regular rate & rhythm and procedure specific exam findings (Abdominal examination nontender nondistended soft) Recommendations Surgery/Procedure today (Colonoscopy with possible biopsy) Other Plans: Plan of care; After thorough history and physical examination and reviewing the chart, plan to perform screening colonoscopy. I discussed with the patient in details the risks,benefits,alternatives and indications.The risk of aspiration, bleeding, soft tissue injury, perforation of the colon and other potential concomitant complications were explained to the patient in details,also the potential need for Laproscoy/Laparotomy to repair any related complications including but not limited to colectomy and or Closotomy.The patient understood this well and did agree to proceed. Rationale was carefully and clearly discussed with the patient.Appropriate informed consent have been reviewed and signed All questions have been answered and all concerns have been addressed to patient's satisfaction. 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
--- NOTE | 2021-04-17 07:02 | ANES.PREANE2 ---
Pre-Anesthetic Assessment Pre-Anesthetic Assessment: Height/Weight: Height 1.57 m Weight 81.647 kg Preop Diagnosis: Screening colonoscopy Proposed Procedure: Operation Date: 04/17/21 08:15 Proposed Procedures p Colonoscopy 20659 Z12.11(Not Applicable) - Scott Kevin MD Familial anesthetic complications: none Was Beta Yesenia taken within 24 hours: N/A Was Clonidine taken within 24 hours: N/A Last intake: > 8 hrs Social: Social History: No alcohol and No tobacco Exam: Pre-Anes Outpt Exam: alert, oriented x 3, clear to auscultation bilaterally and regular rate & rhythm Airway: MP: 3 Dentition: Other (2 missing teeth) Additional comments: retainer w/ 2 teeth Metabolic: Metabolic: Hyperlipidemia Neuropsych: Neuropsych: CRAWFORD Anesthetic Plan: ASA status: 2 Risk of > 500 ml blood loss (7ml/kg in children): No PFSH Anesthesia PFSH: Medical History Elevated liver enzymes Family history of diabetes mellitus Hyperlipidemia Low back pain Migraine headache Obesity (BMI 30.0-34.9) Sacroiliitis Supraumbilical hernia Symptomatic cholelithiasis Weight gain finding Surgical History H/O tubal ligation H/O: hysterectomy History of laparoscopic cholecystectomy (~04/2020) Family History Other CAD (coronary artery disease) Cancer Diabetes Social History Smoking and tobacco status: former smoker Alcohol intake: current Alcohol intake frequency: holidays/special occasions only Marital status: Number of children: 4 Number of grandchildren: 3 Current occupational status: employed Data Anesthesia Cardiac Studies: No Data to Display
[2021-04-17 07:14] VITALS: BP 130/86; PULSE 73; RESP 18; TEMP 36.6; O2SAT 98
[2021-04-17] MEDS: sodium chloride 0.9% 1,000 ML 30 ML IV (07:36)
[2021-04-17 09:31] VITALS: BP 102/57; PULSE 65; RESP 16; TEMP 36.1; O2SAT 94
--- NOTE | 2021-04-17 09:35 | ANE.PACU2 ---
Inpatient post-anesthesia follow up: Airway intact: Yes Vital signs: Temperature 97.8 F Pulse Rate 73 Respiratory Rate 18 Blood Pressure 130/86 Pulse Oximetry 98 Oxygen Delivery Me thod Oxygen Flow Rate Fraction of Inspir ed Oxygen Hydration adequate: Yes Nausea and vomiting: No Pain level: 1 Mental status: Baseline
[2021-04-17 09:54] VITALS: BP 101/66; PULSE 61; RESP 18; O2SAT 97
== END 2021-04-17 10:00 | disposition home or self-care (01) ==
PROVIDERS: PCP Physician Assistant; Visit Provider Surgery
PROC: 0DJD8ZZ Inspection of Lower Intestinal Tract, Via Natural or Artificial Opening Endoscopic (ICD-10-PCS; CPT 45378; principal; 2021-04-17 08:15)
DX: Z12.11 Encounter for screening for malignant neoplasm of colon (principal); E78.5 Hyperlipidemia, unspecified; Z87.891 Personal history of nicotine dependence; K43.2 Incisional hernia without obstruction or gangrene; Z79.82 Long term (current) use of aspirin
CPT/HCPCS: 45378; 96360; 96361; J2704; J7030

== ENCOUNTER 2021-04-20 09:46 | Day surgery (SDC) | payer OTHER, SELFPAY ==
[2021-04-20] VITALS (8 sets, daily range): BP systolic 104–130; BP diastolic 65–79; PULSE 61–89; RESP 8–18; TEMP 36.2–36.6; O2SAT 93–99; BMI 33.8
[2021-04-20] MEDS: acetaminophen 1,000 MG/100 ML PIGGYBACK 400 MG IV (10:50)
--- NOTE | 2021-04-20 11:11 | W.PM.OPSFHP ---
Same Day Surgery H&P Indication for Procedure/HPI DATE OF PROCEDURE: April 20, 2021 CHIEF COMPLAINT/INDICATIONFOR SURGICAL PROCEDURE: My hernia is bothering me PREOP DIAGNOSIS: Ventral hernia PLANNED PROCEDRUE: Operation Date: 04/20/21 11:20 Proposed Procedures p Laparoscopic Incisional Hernia Repair WITH MESH(Not Applicable) - Scott Kevin MD 03/12/2021 Patient comes today for follow-up and on CT scan of the abdomen and pelvis that was done on 02/25/2021 findings shown below 1. Fat-containing umbilical hernia. 2. Negative for acute intra-abdominal or pelvic abnormalities. Apparently the patient had a previous CT scan that was done back in 2018 and there was evidence of ventral abdominal wall hernia but was subtle and small, over time it got bigger. Patient comes today to discuss CT scan findings and she is also due for screening colonoscopy. Interim history 04/20/2021 Patient comes today for laparoscopic ventral incisional hernia repair with mesh placement possible open ROS All systems have been reviewed negative except as per the above or per problem list Medications/Allergies* Home Medications Medication Instructions Recorded Confirmed Type cholecalciferol (vitamin D3) 25 mcg PO DAILY 04/18/20 04/20/21 History [Vitamin D3] magnesium 100 mg PO DAILY 04/18/20 04/20/21 History multivitamin 1 tab PO DAILY 04/18/20 04/20/21 History omega-3 fatty acids 1 cap PO DAILY 04/18/20 04/20/21 History atxpceq-cxudiupldtfpi-kkfwxqgm 250 1 tab PO Q6H PRN 10/27/20 04/20/21 History mg-250 mg-65 mg tablet Allergies/Adverse Reactions Allergy/AdvReac Type Severity Reaction Status Date / Time No Known Allergies Allergy Verified 04/20/21 11:12 Pertinent History/Comorbid Conditions* Medical History (Updated 03/13/21 @ 17:10 by Scott Kevin MD) Elevated liver enzymes Family history of diabetes mellitus Hyperlipidemia Low back pain Migraine headache Obesity (BMI 30.0-34.9) Sacroiliitis Supraumbilical hernia Symptomatic cholelithiasis Weight gain finding Surgical History (Updated 09/19/20 @ 11:01 by Abdelrahman Bray MD) H/O tubal ligation H/O: hysterectomy History of laparoscopic cholecystectomy (~04/2020) Family History (Updated 09/19/20 @ 10:14 by Joaquina Loya LPN) Diabetes CAD (coronary artery disease) Cancer Social History Smoking and tobacco status: former smoker Alcohol intake: current Alcohol intake frequency: holidays/special occasions only Marital status: Number of children: 4 Number of grandchildren: 3 Current occupational status: employed Pertinent Exam Findings alert, oriented x 3, regular rate & rhythm and procedure specific exam findings (Abdominal examination nontender nondistended hernia exam is stable) Recommendations Surgery/Procedure today (Laparoscopic ventral hernia repair with mesh placement possible open) 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
[2021-04-20] MEDS: heparin 5,000 unit/mL INJ 1 mL 3000 UNIT SUBCUT (11:12)
[2021-04-20] MEDS: sodium chloride 0.9% 1,000 ML 30 ML IV (11:13)
--- NOTE | 2021-04-20 13:34 | ANES.PREANE2 ---
Pre-Anesthetic Assessment Pre-Anesthetic Assessment: Height/Weight: Height 1.57 m Weight 83.915 kg Temp Pulse Resp BP Pulse Ox 97.2 F L 78 18 130/79 97 04/20/21 10:24 04/20/21 10:24 04/20/21 10:24 04/20/21 10:24 04/20/21 10:24 Preop Diagnosis: Ventral hernia Proposed Procedure: Operation Date: 04/20/21 11:20 Proposed Procedures p Laparoscopic Incisional Hernia Repair WITH MESH(Not Applicable) - Scott Kevin MD Was Beta Yesenia taken within 24 hours: N/A Was Clonidine taken within 24 hours: N/A Last intake: Intake Last Liquid Date 04/19/21 Last Liquid Time 19:00 Last Solid Date 04/19/21 Last Solid Time 19:00 Social: Social History: No alcohol and No tobacco Exam: Pre-Anes Outpt Exam: alert, oriented x 3, clear to auscultation bilaterally and regular rate & rhythm Airway: Submandibular: WNL Cervical ROM: WNL MP: 2 Dentition: Chipped Metabolic: Metabolic: Morbid obesity Neuropsych: Neuropsych: CRAWFORD Anesthetic Plan: ASA status: 2 Anesthesia: General Meds/Allergies Current Medications: Current Medications Generic Name Dose Route Start Last Admin Trade Name Freq PRN Reason Stop Dose Admin Sodium Chloride 1,000 mls @ 30 ml s/hr 04/20/21 10:15 04/20/21 11:13 Sodium Chloride 0.9% IV 04/21/21 10:14 30 mls/hr .Q24H ST[place]ON Administration PFSH Anesthesia PFSH: Medical History Elevated liver enzymes Family history of diabetes mellitus Hyperlipidemia Low back pain Migraine headache Obesity (BMI 30.0-34.9) Sacroiliitis Supraumbilical hernia Symptomatic cholelithiasis Weight gain finding Surgical History H/O tubal ligation H/O: hysterectomy History of laparoscopic cholecystectomy (~04/2020) Family History Other CAD (coronary artery disease) Cancer Diabetes Social History Smoking and tobacco status: former smoker Alcohol intake: current Alcohol intake frequency: holidays/special occasions only Marital status: Number of children: 4 Number of grandchildren: 3 Current occupational status: employed Data Anesthesia Cardiac Studies: No Data to Display
--- NOTE | 2021-04-20 15:38 | P.OP_ITS ---
Operative Report Date of procedure: April 20, 2021 Pre-op Diagnosis: Ventral hernia Post-op diagnosis: same Post-op Findings: Fascial defect around an inch or so in diameter Procedure Done: Laparoscopic ventral hernia repair with mesh placement Implants: Ventral light mesh 15 cm in diameter Specimens removed/disposition: Falciform ligament pad of fat Surgeon: Scott Kevin Airborne Mission Systems Superintendent: Surgical rick Kunz LG, Luisa and Cynthia Circulating nurses Cynthia and Amelia Zafar Anesthesia: General (DENI Alejandra and Dr. John) Estimated blood loss (mL): 25 IV fluids (mL): 800 Urine output (mL): 100 Condition: stable Disposition: same day Procedure: Patient was brought to the operating room after appropriate preoperative identification at the holding area. Patient had received heparin subcutaneous hvac installation technician to the OR .Patient Was then placed in supine position, Victoria catheter was administered by circulating nurse revealing clear urine. General endotracheal anesthesia was administered the patient was intubated without incident. Both arms were tucked. Time-out was done verifying the patient's name/date of /planned procedure and destination after the procedure, all were in agreement. SCDs confirmed to be functioning, preoperative antibiotics administered per protocol, and beta joanne protocol was confirmed, appropriate positioning of the patient was done . Patient was secured appropriately to the table and all pressure points were padded, anesthesia was asked to place an OG tube to decompress the stomach.Prep and drape of the abdomen was done under the usual sterile technique. After Injection of Exparel An incision was made in the left upper subcostal margin along the left anterior axillary line of the abdomen , 5 mm Opti-Vu trocar was used with a 0 scope 5 mm under direct visualization safe entrance to the abdomen was achieved and all through abdominal wall layers. The abdomen was insufflated to 15 mmHg at 40 L/m , abdomen was surveyed showing no signs of injuries, followed by placement of 12 mm trocar under direct visualization about a handbreadth inferior to first trocar, followed by another 5 mm trocar inserted 1 handbreadth inferior to the 12 mm trocar. Using a LigaSure device, I had to take the falciform ligament down. To allow placement of the mesh. Upon entrance of the abdominal cavity there was no content within the hernia defect which was about an inch or so in diameter. That pad of fat of the falciform was taken down and placed in an Endo Catch bag for permanent pathology. At this point measurement of the fascial defect about an inch in diameter,At that point a ventral light mesh 15 cm in diameter is decided upon, having about more than 5 cm overlap from the fascial defect edge. Trans-fascial PDS sutures were used to close the hernia site defect [id number] suture under direct visualization. Application of PDS sutures at the 4 portions of the mesh was done after appropriate orientation ex vivo, then the mesh was soaked in saline for few seconds then rolled then introduced through the 12 mm trocar, making sure that the smooth service faces the bowel and the rough surface faces abdominal wall, fascial closure device was introduced after creating 4 skin stab incisions using 11 blade knife, matching site of exit of PDS sutures, fascial closure device was introduced to grab onto the 2 limbs of PDS sutures from each pole of the mesh and grabbed and tied down ex vivo, defect was at the center of the mesh. There was some oozing towards the caudad part of the mesh and a [id number] 0 Vicryl suture was used using fascial closure device for hemostasis. Suction irrigation was achieved. At this point the mesh was adjusted found to be in a good position with good overlap,no trans-fascial sutures were used at this point, an absorbable Tack fixation device, performing a double crown technique to secure the mesh in place was used, Hemostasis was secured, at that point there was no evidence of bleeding, the mesh appears to be in good position and well spread without crumbling. Final survey laparoscopy was done showing no injuries Bilateral TAP (transversus abdominous plain peripheral nerve block )block using Exparel 20 mL Exparel 40 ml Normal saline 20 ml bupivacaine 0.25% 30 mL on each side injected 20 mL injected the port sites Closure of the 12 mm trocar site, using interrupted #1 PDS sutures under direct visualization.Trocars were then taken out under direct visualization and gas was allowed to escape., followed by subcuticular closure for all trocar sites, including the fascial closure device sites , Dermabond was applied Patient tolerated the procedure well, and an abdominal binder was then wrapped around the patient's abdomen. The patient was then extubated and transferred to the recovery room in stable condition Victoria catheter was taken out at the end of the procedure without complication All count of instruments and sponges were completed I Was present for the whole entire procedure
--- NOTE | 2021-04-20 15:57 | P.PCN_ITS ---
Documented by User: Justyn Forrest CRNA 04/20/21 15:57 PACU note PACU note: VSS, Good respiratory effort, report to AIRCRAFT PARTS ASSEMBLER Post-Anesthesia Exam: awake
--- NOTE | 2021-04-20 15:57 | PM.PACU ---
Documented by User: Justyn Forrest CRNA 04/20/21 15:57 PACU note PACU note: VSS, Good respiratory effort, report to CLIENT FINANCE ANALYST Post-Anesthesia Exam: awake
--- NOTE | 2021-04-20 17:04 | ANE.PACU2 ---
Inpatient post-anesthesia follow up: Airway intact: Yes Vital signs: Temperature 97.8 F Pulse Rate 81 Respiratory Rate 18 Blood Pressure 122/77 Pulse Oximetry 96 Oxygen Delivery Me thod Room Air Oxygen Flow Rate 1 Fraction of Inspir ed Oxygen Hydration adequate: Yes Nausea and vomiting: No Pain level: 2 Mental status: Baseline
== END 2021-04-20 17:15 | disposition home or self-care (01) ==
PROVIDERS: PCP Physician Assistant; Visit Provider Surgery
PROC: 0WQF4ZZ Repair Abdominal Wall, Percutaneous Endoscopic Approach (ICD-10-PCS; CPT 49652; principal; 2021-04-20 11:20)
DX: K43.9 Ventral hernia without obstruction or gangrene (principal); Z90.49 Acquired absence of other specified parts of digestive tract
CPT/HCPCS: 49652; 51702; 88302; 96365; 96372; C1781; C9290; J0690; J1100; J1644; J2405; J2704; J2710; J3010; J3490; J7030

== ENCOUNTER 2022-04-14 08:22 | Outpatient (CLI) | payer OTHER, SELFPAY ==
--- NOTE | 2022-04-14 09:18 | MM_ITS ---
WS: [id number] BILATERAL SCREENING DIGITAL TOMOSYNTHESIS MAMMOGRAM WITH CAD HISTORY: SCREENING COMPARISON: 03/13/2021, 01/02/2016 Bilateral CC and MLO views with tomosynthesis and synthetic mammography submitted. Computer aided det ection analyzed. Breast composition: There are scattered areas of fibroglandular density. No suspicious masses, microc alcifications or architectural distortion. MM/[place] [id number] IMPRESSION: BI-RADS: 1-Negative FOLLOW UP: 1 Year Follow-up
== END 2022-04-14 08:23 | disposition home or self-care (01) ==
PROVIDERS: Visit Provider Physician Assistant
DX: Z12.31 Encounter for screening mammogram for malignant neoplasm of breast (principal)
CPT/HCPCS: 77063; 77067

== ENCOUNTER 2022-06-03 07:20 | Outpatient (CLI) | payer OTHER, SELFPAY ==
--- NOTE | 2022-06-03 | US_ITS ---
WS: [id number] RIGHT UPPER QUADRANT ULTRASOUND HISTORY: ELEVATED LFT'S COMPARISON: 03/26/2020 Liver: 14.6 cm in length. Normal size liver but there is mild coarsened echotexture which is new. No mass or bile duct dilatation. Portal Vein: Normal hepatopetal flow with monophasic waveform. Gallbladder: Prior cholecystectomy. CBD: 0.7 cm Pancreas: Normal size and echogenicity. Right kidney: 9.7 cm in length. Normal size and echogenicity. No hydronephrosis or mass. Aorta and IVC: Unremarkable abdominal aorta and IVC. No ascites. US/US abdomen limited [id number] IMPRESSION: 1. Prior cholecystectomy. 2. Very mild coarse echotexture probably related to hepatic steatosis. New sin ce 03/26/2020.
== END 2022-06-03 07:21 | disposition home or self-care (01) ==
PROVIDERS: Visit Provider Behavior Analyst
DX: R94.5 Abnormal results of liver function studies (principal); Z90.49 Acquired absence of other specified parts of digestive tract
CPT/HCPCS: 76705

== ENCOUNTER 2024-04-25 16:47 | Emergency (ER) | payer OTHER, SELFPAY ==
--- NOTE | 2024-04-25 16:49 | ECG_ITS ---
[facility] Date: 2024-04-25 Pat Name: Ana Laura Kitchen Department: Room: Gender: Female Bilingual Loan Processor: : 1970 Requested By: Cesar Rogers Order Number: [id number] Reading MD: LUIS SOLIS Measurements Intervals [place] Rate: 80 P: 47 LA: 141 QRS: 65 QRSD: 76 T: 61 QT: 375 QTc: 434 Interpretive Statements SINUS RHYTHM Compared to ECG 03/26/2020 05:31:40 No significant changes Electronically Signed On 04-25-2024 17:15:54 POULTRY HUSBANDRY TEACHER by LUIS SOLIS [id number]
[2024-04-25 16:58] VITALS: BP 151/75; PULSE 85; RESP 18; TEMP 36.4; O2SAT 100
== END 2024-04-25 19:24 | disposition left against medical advice (07) ==
PROVIDERS: Emergency Provider Emergency Medicine; PCP Behavior Analyst
DX: Z53.21 Procedure and treatment not carried out due to patient leaving prior to being seen by health care provider (principal)
CPT/HCPCS: 93005

== ENCOUNTER → 2024-08-03 11:32 | Outpatient (BNVA) | payer BC, SELFPAY | PROVIDERS: PCP Behavior Analyst; Visit Provider Family Medicine | DX: Z00.00 Encounter for general adult medical examination without abnormal findings (principal) | CPT/HCPCS: 80053; 80061; 84443; 85025 ==

== ENCOUNTER 2024-08-19 16:32 | Emergency (ER) | payer OTHER, SELFPAY ==
[2024-08-19 16:38] VITALS: BP 132/93; PULSE 111; RESP 16; TEMP 36.6; O2SAT 97; BMI 29.2
--- NOTE | 2024-08-19 16:54 | W.ED.URI ---
HPI - URI/Sore Throat General: Chief Complaint: Upper Respiratory Infection Stated Complaint: flu like symptoms Time Seen by Provider: 08/19/24 16:36 History of Present Illness: 53-year-old female presents emergency room with flulike symptoms . She has had malaise, fatigue. She was in bed for about 3 days. She initially had vomiting. She now has pretty severe diarrhea. She still feels nauseous but had any vomiting but she has not eaten much of anything. She feels dehydrated and she is tachycardic on presentation. No known fevers. COVID test was negative at home. Related Data Home Medications ?Medication ?Instructions ?Recorded ?Confirmed cholecalciferol (vitamin D3) 25 25 mcg PO DAILY 04/18/20 08/03/24 mcg (1,000 unit) capsule (Vitamin D3) magnesium 100 mg capsule 100 mg PO DAILY 04/18/20 08/03/24 multivitamin 1 tab PO DAILY 04/18/20 08/03/24 [id number] 250 1 tab PO Q6H PRN Headache 10/27/20 08/03/24 mg-250 mg-65 mg tablet (Excedrin Extra Strength) metformin 500 mg tablet 500 mg PO DAILY 06/09/23 08/03/24 Previous Rx's ?Medication ?Instructions ?Recorded sumatriptan succinate 100 mg tablet 50 mg (1/2 x 100 mg) PO Q2H PRN 11/25/23 migraine headache 30 days #30 tabs atomoxetine 100 mg capsule 100 mg PO DAILY #60 caps 07/17/24 (Strattera) celecoxib 200 mg capsule 200 mg PO DAILY #90 caps 08/03/24 doxepin 10 mg capsule 20 mg (2 x 10 mg) PO DAILY #180 08/03/24 caps estradiol 0.05 mg/24 hr semiweekly 1 patch transdermal .twice weekly 08/03/24 transdermal patch (Mirta) #8 ea omeprazole 20 mg capsule,delayed 20 mg PO DAILY #60 caps 08/03/24 release progesterone micronized 100 mg 100 mg PO QAM #90 caps 08/03/24 capsule cefdinir 300 mg capsule 300 mg PO BID 5 days #10 caps 08/19/24 ondansetron 4 mg disintegrating 4 mg PO Q8H PRN nausea and 08/19/24 tablet vomiting #10 tabs Allergies Allergy/AdvReac Type Severity Reaction Status Date / Time hydrocodone AdvReac Intermediate ADR-Migrain Verified 08/03/24 11:36 e Review of Systems Narrative: Constitutional symptoms: Negative except as documented in HPI. Skin symptoms: Negative except as documented in HPI. Eye symptoms: Negative except as documented in HPI. ENMT symptoms: Negative except as documented in HPI. Respiratory symptoms: Negative except as documented in HPI. Cardiovascular symptoms: Negative except as documented in HPI. Gastrointestinal symptoms: Negative except as documented in HPI. Genitourinary symptoms: Negative except as documented in HPI. Musculoskeletal symptoms: Negative except as documented in HPI. Neurologic symptoms: Negative except as documented in HPI. Psychiatric symptoms: Negative except as documented in HPI. Endocrine symptoms: Negative except as documented in HPI. PFSH ED PFSH: Medical History (Updated 08/19/24 @ 18:46 by Charlotte Smith MD) History of kidney stones Menopausal syndrome on hormone replacement therapy Cystocele with prolapse Chronic insomnia trazodone she thinks made migraines worse; amitryptylline didn't work; taking doxepin ADHD dxed by online provider Low back pain chronic low back pain Obesity (BMI 30.0-34.9) Hyperlipidemia Migraine headache Sacroiliitis Surgical History Hx of umbilical hernia repair and ventral hernia repair Hx of colonoscopy 11.16.21--normal; repeat 10 yrs History of placement of ureteral stent kidney stone History of laparoscopic cholecystectomy (~04/2020) H/O tubal ligation H/O: hysterectomy ovaries remaining; done for prolapse; prior to that had endometrial ablation Family History Father CAD (coronary artery disease) Mother Cancer uterine cancer and mesothelioma Grandmother Breast cancer PGM and Paternal aunt Other Diabetes Social History Smoking and tobacco/nicotine status: former use of tobacco/nicotine Quit status (tobacco/nicotine): has quit using Year quit tobacco: 2012 Former quit date comment: social only; not daily--doesn't qualify for it Alcohol intake: current Alcohol intake frequency: holidays/special occasions only Substance/Drug Use: never Household members: spouse and other Details: one son Marital status: Number of children: 4 Number of grandchildren: 3 Highest education level completed: Other Doctoral Degree Current occupational status: employed 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 Skin: Warm, dry. Head: Normocephalic, atraumatic. Neck: Supple, trachea midline. Eye: Extraocular movements are intact. Ears, nose, mouth and throat: Tacky oral mucosa Cardiovascular: Regular, tachycardic, normal peripheral perfusion. Respiratory: Lungs are clear to auscultation, respirations are non-labored, breath sounds are equal, Symmetrical chest wall expansion. Gastrointestinal: Soft, Nontender, Non distended Musculoskeletal: Normal ROM, no deformity. Neurological: Alert and oriented, No focal neurological deficit observed. Psychiatric: Cooperative, appropriate mood & affect. Course Vital Signs: Vital signs: Vital Signs Temperature 97.9 F 08/19/24 16:38 Pulse Rate 99 08/19/24 18:00 Respiratory Rate 16 08/19/24 16:38 Blood Pressure 138/91 08/19/24 18:00 Pulse Oximetry 99 08/19/24 18:00 Oxygen Delivery Me thod Room Air 08/19/24 16:38 MDM - URI/Sore Throat Medical Decision Making Medical decision making: Differential diagnosis for this patient with nausea and vomiting including but not limited to and based on the above HPI, review of systems and physical exam: Urinary tract infection. Appendicitis. Cholecystis. colitis. small bowel obstruction. crohn's flare. pancreatitis. gastritis. peptic ulcer. cyclic vomiting. Viral illness. Influenza. COVID. Orders placed to evaluate differential diagnosis based on the above differential, HPI and physical exam Lab Review: Laboratory results were reviewed and interpreted by myself the emergency room physician. Mild leukocytosis. No anemia. BUN is a bit elevated which would indicate some dehydration. Urinalysis shows concentrated urine which would also support dehydration. Mild infection. No flu COVID or RSV. I reviewed the patient's medical record. Reexamination: Patient remained stable. No increased work of breathing. No altered mental status. No focal motor deficits. Patient feeling a bit better after nausea medications and fluids. Assessment and plan: Urinary tract infection Dehydration Gastroenteritis ? IV Zofran, IV normal saline bolus, IV Rocephin. - Discharged home - Discussed plan with patient. Answered any questions. - Evaluation and treatment of this problem were appropriate in the emergency setting. Lab Data 08/19/24 16:54 08/19/24 16:54 Laboratory Results WBC 11.83 10^3/uL (3.29-11.43) H 08/19/24 16:54 RBC 5.60 10^6/uL (3.85-5.65) 08/19/24 16:54 Hgb 16.70 g/dL (11.27-16.99) 08/19/24 16:54 Hct 49.7 % (36-47) H 08/19/24 16:54 MCV 88.8 fl (85-98) 08/19/24 16:54 MCH 29.8 pg (27-33) 08/19/24 16:54 MCHC 33.6 g/dL (30-55) 08/19/24 16:54 RDW 12.2 % (12.1-15.1) 08/19/24 16:54 Plt Count 427 10^3/cmm (157-399) H 08/19/24 16:54 MPV 9.1 fL (7.4-10.4) 08/19/24 16:54 Neut % (Auto) 72.2 % 08/19/24 16:54 Lymph % (Auto) 18.8 % 08/19/24 16:54 Bacon % (Auto) 7.4 % 08/19/24 16:54 Eos % (Auto) 1.0 % 08/19/24 16:54 Baso % (Auto) 0.4 % 08/19/24 16:54 Neut # (Auto) 8.54 10^3/uL (1.8-7.7) H 08/19/24 16:54 Lymph # (Auto) 2.2 10^3/uL (0.8-4.8) 08/19/24 16:54 Bacon # (Auto) 0.9 10^3/uL (0.2-0.9) 08/19/24 16:54 Eos # (Auto) 0.1 10^3/uL (0.0-0.8) 08/19/24 16:54 Baso # (Auto) 0.1 10^3/uL (0.0-0.1) 08/19/24 16:54 Nucleated RBC % (auto) 0 % 03/16/25 16:54 Nucleated RBCs # 0.0 /100WBC 08/19/24 16:54 Sodium 135 mmol/L (136-145) L 08/19/24 16:54 Potassium 3.3 mmol/L (3.5-5.1) L 08/19/24 16:54 Chloride 101 mmol/L (98-107) 08/19/24 16:54 Carbon Dioxide 21 mmol/L (22-29) L 08/19/24 16:54 Anion Gap 16.3 (5-19) 08/19/24 16:54 BUN 25 mg/dL (6-20) H 08/19/24 16:54 Creatinine 0.8 mg/dL (0.5-0.9) 08/19/24 16:54 GFR Calculation 75.6 mL/min (90-130) L 08/19/24 16:54 Glucose 107 mg/dL (65-115) 08/19/24 16:54 Calculated Osmolality 285 mOsm/kg (285-295) 08/19/24 16:54 Lactic Acid 1.6 mmol/L (0.5-2.2) 08/19/24 16:54 Calcium 9.4 mg/dL (8.5-10.5) 08/19/24 16:54 Total Bilirubin 0.5 mg/dL (0.15-1.2) 08/19/24 16:54 AST 16 U/L (0-32) 08/19/24 16:54 ALT 27 U/L (0-33) 08/19/24 16:54 Alkaline Phosphatase 116 U/L (35-105) H 08/19/24 16:54 Total Protein 7.4 g/dL (6.6-8.7) 08/19/24 16:54 Albumin 4.7 g/dL (3.5-5.2) 08/19/24 16:54 Globulin 2.7 g/dL (1.3-4.6) 08/19/24 16:54 Lipase 37 U/L (13-60) 08/19/24 16:54 Urine Color Yellow (Yellow) 08/19/24 16:54 Urine Appearance Cloudy (CLEAR) A 08/19/24 16:54 Urine pH 5.5 (5-7) 08/19/24 16:54 Ur Specific [place] 1.027 (1.005-1.030) 08/19/24 16:54 Urine Protein 1+ (Negative) A 08/19/24 16:54 Urine Glucose (UA) Negative (Normal) 08/19/24 16:54 Urine Ketones Trace (Negative) 08/19/24 16:54 Urine Blood Negative (Negative) 08/19/24 16:54 Urine Nitrate Negative (Negative) 08/19/24 16:54 Urine Bilirubin Negative (Negative) 08/19/24 16:54 Urine Urobilinogen 1.0 mg/dL (Negative) 08/19/24 16:54 Ur Leukocyte Esterase Trace (Negative) A 08/19/24 16:54 Urine RBC 6-10 /hpf (0-2) 08/19/24 16:54 Urine WBC 5-10 /hpf (0-5) H 08/19/24 16:54 Ur Squamous Epith Cells 6-10 /hpf (0-5) 08/19/24 16:54 Amorphous Sediment Not Reportable 08/19/24 16:54 Urine Bacteria 2+ /hpf (NONE) H 08/19/24 16:54 Hyaline Casts 14.47 /lpf 08/19/24 16:54 Influenza A (PCR) Negative (Negative) 08/19/24 16:54 Influenza Type B (PCR) Negative (Negative) 08/19/24 16:54 RSV (PCR) Negative (Negative) 08/19/24 16:54 SARS-CoV-2 (PCR) Negative (Negative) 08/19/24 16:54 No radiology studies performed this visit Discharge Plan Discharge Patient Disposition: Home Clinical Impression: Gastroenteritis, Dehydration, Urinary tract infection Condition: Stable Prescriptions: New ondansetron 4 mg tablet,disintegrating 4 mg PO Q8H PRN (Reason: nausea and vomiting) Qty: 10 0RF cefdinir 300 mg capsule 300 mg PO BID 5 Days Qty: 10 0RF No Action Excedrin Extra Strength 250-250-65 mg tablet 1 tab PO Q6H PRN (Reason: Headache) metformin 500 mg tablet 500 mg PO DAILY atomoxetine [Strattera] 100 mg capsule 100 mg PO DAILY Qty: 60 0RF omeprazole 20 mg capsule,delayed release(DR/EC) 20 mg PO DAILY Qty: 60 0RF celecoxib 200 mg capsule 200 mg PO DAILY Qty: 90 0RF doxepin 10 mg capsule 20 mg PO DAILY Qty: 180 0RF progesterone micronized 100 mg capsule 100 mg PO QAM Qty: 90 3RF estradiol [Mirta] 0.05 mg/24 hr patch semiweekly 1 patch transdermal .twice weekly Qty: 8 0RF sumatriptan succinate 100 mg tablet 50 mg PO Q2H MDD 200 mg PRN (Reason: migraine headache) 30 Days Qty: 30 5RF Rx Instructions: 340B medication multivitamin Tablet 1 tab PO DAILY magnesium 100 mg Capsule 100 mg PO DAILY cholecalciferol (vitamin D3) [Vitamin D3] 25 mcg (1,000 unit) Capsule 25 mcg PO DAILY Discharge Orders: Discharge ED (Routine); Ordered 08/19/24 Ordered By: Charlotte Smith Referrals: Alec Chaudhary NP [Primary Care Provider] - Discharge Diet: Usual diet Discharge Activity: Increase activity as tolerated Patient Instructions: Gastroenteritis (ED), Opioid Safety, Pain Management Activity Restrictions/Additional Instructions: Thank you for choosing [facility] for your healthcare needs today. Please realize this is an emergency room and that we are providing you with a medical screening exam and this may not be complete and all inclusive of all the testing and or work up that you may need to determine your ailment or severity of your illness. You have been screened and evaluated and felt safe for discharge. Health conditions do change or evolve sometimes and as such it is important that you follow up with your Primary Doctor to be re checked, 3-5 days is a general good time frame for follow up. You are always welcome to return to the ED for re assessment if your symptoms are worsening or you have new concerns Print Language: Latvian Coding Level of Care Code ED Director External Communications for [facility]
[2024-08-19 17:05] LABS: Basophils # 0.1 10^3/uL (0.0-0.1); Basophils % 0.4 %; Eosinophils # 0.1 10^3/uL (0.0-0.8); Hematocrit 49.7 % (36-47); Lymphocytes # 2.2 10^3/uL (0.8-4.8); Lymphocytes % 18.8 %; Mean Corpuscular HGB Conc 33.6 g/dL (30-55); Mean Corpuscular Hemoglobin 29.8 pg (27-33); Mean Corpuscular Volume 88.8 fl (85-98); Mean Platelet Volume 9.1 fL (7.4-10.4); Monocytes # 0.9 10^3/uL (0.2-0.9); Monocytes % 7.4 %; Neutrophils # 8.54 10^3/uL (1.8-7.7); Neutrophils % 72.2 %; Nucleated Red Blood Cells % 0 %; Platelet Count 427 10^3/cmm (157-399); Red Cell Distribution Width 12.2 % (12.1-15.1); White Blood Count 11.83 10^3/uL (3.29-11.43)
[2024-08-19 17:10] LABS: Bilirubin Urine Negative (Negative); Blood Urine Negative (Negative); Glucose Urine UA Negative (Normal); Ketones Urine Trace (Negative); Leukocyte Esterase Urine Trace (Negative); Nitrate Urine Negative (Negative); Protein Urine 1+ (Negative); Specific Gravity, Urine 1.027 (1.005-1.030); Urine Appearance Cloudy (CLEAR); Urine Color Yellow (Yellow); pH Urine 5.5 (5-7)
[2024-08-19 17:15] LABS: Hyaline Casts Urine 14.47 /lpf
[2024-08-19 17:19] LABS: Lactic Sepsis W/Reflex 1.6 mmol/L (0.5-2.2)
[2024-08-19 17:20] LABS: Alanine Aminotransferase 27 U/L (0-33); Albumin Level 4.7 g/dL (3.5-5.2); Alkaline Phosphatase 116 U/L (35-105); Anion Gap 16.3 (5-19); Aspartate Amino Transferase 16 U/L (0-32); Blood Urea Nitrogen 25 mg/dL (6-20); Calcium 9.4 mg/dL (8.5-10.5); Carbon Dioxide 21 mmol/L (22-29); Chloride 101 mmol/L (98-107); Creatinine Clr Calc Pharmacy 77.6069; Globulin 2.7 g/dL (1.3-4.6); Glomerular Filtration Rate 75.6 mL/min (90-130); Glucose 107 mg/dL (65-115); Lipase 37 U/L (13-60); Osmolality Calculated 285 mOsm/kg (285-295); Potassium 3.3 mmol/L (3.5-5.1); Sodium 135 mmol/L (136-145); Total Bilirubin 0.5 mg/dL (0.15-1.2); Total Protein 7.4 g/dL (6.6-8.7)
[2024-08-19] MEDS: ondansetron 2 mg/ML SDV 2 mL 8 MG IVP (17:23)
[2024-08-19] MEDS: sodium chloride 0.9% 1,000 ML 999 ML IV (17:23)
[2024-08-19 17:24] LABS: Bacteria Urine 2+ /hpf; UA Slide Review UA Slide Review Perf
[2024-08-19 17:30] VITALS: BP 121/91; PULSE 94; O2SAT 96
[2024-08-19 17:46] LABS: Influenza A NEGATIVE (Negative); Influenza B NEGATIVE (Negative); Respiratory Syncytial Virus Ce NEGATIVE (Negative); SARS-CoV-2 PCR NEGATIVE (Negative)
[2024-08-19 18:00] VITALS: BP 138/91; PULSE 99; O2SAT 99
[2024-08-19 19:02] VITALS: BP 141/92; PULSE 99; O2SAT 97
[2024-08-19] MEDS: cefTRIAXone 1,000 mg SDV 1000 MG IVP (19:17)
[2024-08-19 19:30] VITALS: BP 141/92; PULSE 108; O2SAT 92
== END 2024-08-19 19:31 | disposition home or self-care (01) ==
PROVIDERS: Emergency Provider Emergency Medicine; PCP Behavior Analyst
DX: K52.9 Noninfective gastroenteritis and colitis, unspecified (principal); E86.0 Dehydration; N39.0 Urinary tract infection, site not specified; Z87.891 Personal history of nicotine dependence; E78.5 Hyperlipidemia, unspecified
CPT/HCPCS: 80053; 81001; 83605; 83690; 85025; 87040; 87637; 96374; 96375; 99284; J0696; J2405; J7030